=== PATIENT | male | born 1975 | race Caucasian/White ===

== ENCOUNTER 2023-09-29 04:37 | Emergency (ER) | payer OTHER, SELFPAY ==
[2023-09-29 04:48] VITALS: BP 147/91; PULSE 84; RESP 14; TEMP 36.9; O2SAT 98; BMI 29.9
--- NOTE | 2023-09-29 04:54 | ED.GENADULT ---
HPI - General Adult General Chief complaint: Ear Stated complaint: ear pain Time Seen by Provider: 09/29/23 04:47 Source: patient Mode of arrival: Ambulatory History of Present Illness HPI narrative: 40-year-old otherwise healthy male here for evaluation of left ear discomfort and drainage. No fevers. No sore throat. No sinus congestion. No right ear discomfort. Symptoms been going on for the past couple days. Does have muffled hearing in the left ear. Related Data Previous Rx's Medication Instructions Recorded ofloxacin 0.3 % ear drops 10 drp EAR-LEFT DAILY 7 days #5 mL 09/29/23 Review of Systems Constitutional Constitutional: Reports system reviewed and no additional complaints, except as documented ENT Ears, Nose, Mouth, and Throat: Reports system reviewed and no additional complaints, except as documented Integumentary/Breasts Skin/Breast: Reports system reviewed and no additional complaints, except as documented Exam Initial Vital Signs Initial Vital Signs: Vital Signs Temperature 98.4 F 09/29/23 04:48 Pulse Rate 84 09/29/23 04:48 Respiratory Rate 14 09/29/23 04:48 Blood Pressure 147/91 H 09/29/23 04:48 Pulse Oximetry 98 09/29/23 04:48 Oxygen Delivery Method Room Air 09/29/23 04:48 Const General: cooperative and comfortable HENMT Ears: TM normal on the right, TM normal on the left, mastoids normal bilaterally and EAC abnormal erythema on the left, edema on the left, EAC tenderness on the left and otic discharge Neck Lymphatic: No lymphadenopathy Course Vital Signs Vital signs: Vital Signs - 8 hr 09/29/23 04:48 Temperature 98.4 F Pulse Rate 84 Respiratory Rate 14 Blood Pressure 147/91 H Pulse Oximetry 98 Oxygen Delivery Method Room Air Medical Decision Making [facility] Narrative Medical decision making narrative: Right ear is unremarkable. Left ear is consistent with an acute otitis externa. He does have some swelling of the external auditory canal however was able to visualize a portion of the tympanic membrane which appeared to be unremarkable. His right side is unremarkable. Plan will be to treat him with antibiotic drops. They were sent to the pharmacy of his choice. There was no reason to put an ear wick in today has the canal is open. He was given return precautions. He expressed understanding and agreement. Discharge Plan Departure Patient Disposition: Home Clinical Impression: Otitis externa Instructions: DI for Otitis Externa Activity Restrictions/Additional Instructions: It is important that you use the eardrops as directed. Your symptoms should start to improve in the next couple days however complete the course of antibiotics. If your symptoms worsen you do need to be re-evaluated. Return to the emergency department for new symptoms. Prescriptions: New ofloxacin 0.3 % drops 10 drp EAR-LEFT DAILY 7 Days Qty: 5 1RF Stand Alone Forms: Patient Portal/API
== END 2023-09-29 05:01 | disposition home or self-care (01) ==
PROVIDERS: Emergency Provider Emergency Medicine
DX: H60.92 Unspecified otitis externa, left ear (principal)
CPT/HCPCS: 99281